=== PATIENT | female | born 1955 | race Caucasian/White ===

== ENCOUNTER 2018-08-29 19:49 | Emergency (ER) | payer OTHER, SELFPAY ==
[2018-08-29 19:52] VITALS: BP 125/76; PULSE 80; RESP 17; TEMP 36.6; O2SAT 98; BMI 31.2
--- NOTE | 2018-08-29 19:56 | DI.RAD.S_ITS ---
PROCEDURE: XR ELBOW RT MIN 3V INDICATIONS: right elbow pain after fall TECHNIQUE: 3 views of the elbow were acquired. COMPARISON: None. FINDINGS: Bones: There is acute oblique, possibly comminuted fracture through the right distal humerus/supracondylar region with anterior displacement of the distal fracture fragments. There are severe degenerative changes of the right elbow at the radial-humeral and ulnohumeral joints. Soft tissues: There is a large elbow joint effusion with overlying elbow soft tissue edema IMPRESSION: Acute displaced fracture through the supracondylar region of the right distal humerus, with associated right elbow joint effusion and soft tissue edema. Dictated by: Jeff Medina M.D. on 08/29/2018 at 20:45 Approved by: Jeff Medina M.D. on 08/29/2018 at 20:47
[2018-08-30 00:33] VITALS: BP 155/86; PULSE 74; RESP 17; TEMP 37.7; O2SAT 95
--- NOTE | 2018-08-30 01:45 | PC.NURSE ---
pt requesting pain medication. Dr Hairston aware
[2018-08-30] MEDS: MORPHINE 4 MG/ML INJ IM (01:59)
[2018-08-30] MEDS: HYDROCODONE/ACET 5/325 PREPACK 1 BOTTLE MISC (02:02)
[2018-08-30] MEDS: ONDANSETRON 4 MG ODT SL (02:23)
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
[2018-08-30 02:47] VITALS: BP 147/78; PULSE 75; RESP 18; TEMP 37.2; O2SAT 96
== END 2018-08-30 03:11 | disposition home or self-care (01) ==
PROVIDERS: Emergency Provider Emergency Medicine
DX: S42.401A Unspecified fracture of lower end of right humerus, initial encounter for closed fracture (principal); W01.0XXA Fall on same level from slipping, tripping and stumbling without subsequent striking against object, initial encounter; Y92.524 Gas station as the place of occurrence of the external cause
CPT/HCPCS: 29105; 73080; 96372; 99283; J2270

== ENCOUNTER → 2018-10-17 12:47 | Outpatient (CLI) | payer OTHER, SELFPAY ==
--- NOTE | 2018-10-17 | DI.CT.S_ITS ---
PROCEDURE: CT UE RT WO CON INDICATIONS: PAIN IN RIGHT ELBOW TECHNIQUE: Noncontrast 1-1.5 mm axial sections were acquired through the elbow joint, with coronal and sagittal reformats. COMPARISON: [facility], CR, XR ELBOW 1 OR 2 VIEWS RIGHT, 10/03/2018, 15:38. [facility], CR, XR ELBOW 1 OR 2 VIEWS RIGHT, 09/12/2018, 15:52. [facility], CR, XR ELBOW 1 OR 2 VIEWS RIGHT, 09/02/2018, 17:00. [facility], CR, XR ELBOW RT MIN 3V, 08/29/2018, 19:58. FINDINGS: Image quality: Excellent. Bones: Severe osteopenia. Grossly unchanged alignment of distal humeral supracondylar fracture however minimal if any bridging ossification, possibly some present on image 80 series 5. Advanced shoulder joint degeneration, with near [id number] appearance. There is extensive callus formation and bulky osteophytes. Subchondral lucencies/cystic changes. There is diffuse muscle atrophy. Subcutaneous edema overlying the olecranon. Chronic deformity of the radial head. Possible trace elbow joint effusion. IMPRESSION: Redemonstration of distal humeral supracondylar fracture with minimal bridging ossification identified. Unchanged alignment. Diffuse osteopenia Advanced elbow joint degeneration with ditp-en-dlcw appearance. Dictated by: Joselito Mercer M.D. on 10/17/2018 at 16:16 Approved by: Joselito Mercer M.D. on 10/17/2018 at 16:21
== END ==
LOC: RAD 12:49
PROVIDERS: PCP Student in an Organized Health Care Education/Training Program; Visit Provider Physician Assistant
DX: M25.521 Pain in right elbow (principal); S42.411A Displaced simple supracondylar fracture without intercondylar fracture of right humerus, initial encounter for closed fracture; M19.011 Primary osteoarthritis, right shoulder; M85.852 Other specified disorders of bone density and structure, left thigh; Z78.0 Asymptomatic menopausal state; M06.9 Rheumatoid arthritis, unspecified; Z82.62 Family history of osteoporosis
CPT/HCPCS: 73200; 77080

== ENCOUNTER 2019-01-09 20:12 | Emergency (ER) | payer OTHER, SELFPAY ==
--- NOTE | 2019-01-09 20:13 | DI.RAD.S_ITS ---
PROCEDURE: XR ACUTE ABDOMEN SERIES INDICATIONS: Abdominal pain, N/V TECHNIQUE: One view chest and two views of the abdomen were acquired. COMPARISON: None. FINDINGS: Surgical changes and devices: None. Chest: Lungs are clear. There is a moderate size hiatal hernia. Heart size is normal. No pleural effusions. No pneumoperitoneum. Abdomen: Bowel gas pattern is within normal limits. No suspicious calcifications. Bones: No suspicious bony lesions. IMPRESSION: 1. No definite acute intra-abdominal radiographic abnormality. 2. Moderate-sized hiatal hernia. Dictated by: Crispin Cueva M.D. on 01/09/2019 at 21:17 Approved by: Crispin Cueva M.D. on 01/09/2019 at 21:18
[2019-01-09] MEDS: SODIUM CHLORIDE 0.9% 1,000 ML 1000 ML IV (20:17)
[2019-01-09 20:20] VITALS: BP 160/79; PULSE 65; RESP 19; TEMP 36.2; O2SAT 99; BMI 32.2
--- NOTE | 2019-01-09 20:22 | ED_ITS ---
HPI - Nausea/Vomiting/Diarrhea General Chief complaint: Nausea/Vomiting/Diarrhea Stated complaint: Back Pain Time Seen by Provider: 01/09/19 20:12 Source: patient and EMS Mode of arrival: EMS Limitations: no limitations History of Present Illness HPI Narrative: 63-year-old female nonsmoker with noncontributory medical history presents by EMS for evaluation of a severe, sudden onset upper back pain with nausea and vomiting that started 30 minutes after eating. Her pain is worse with motion and improves with rest. She admits to some relief after vomiting. She denies any history of the same. She denies any fever or shaking chills. She is not dizzy nor weak or lightheaded. She denies any chest pain or shor tness of breath. Related Data Previous Rx's Medication Instructions Recorded hydrocodone-acetaminophen [[place]] 1 tab PO Q4-6H PRN #14 tab 08/30/18 hydrocodone-acetaminophen 1 tab PO Q4-6H PRN #10 tab 01/09/19 ondansetron 4 mg PO TID-QID PRN #10 tab 01/09/19 Allergies Allergy/AdvReac Type Severity Reaction Status Date / Time No Known Drug Allergies Allergy Verified 08/29/18 19:52 Review of Systems Constitutional Constitutional: Denies chills, Denies fatigue, Denies fever(s), Denies frequent falls, Denies lethargy and Denies weakness Eyes Eyes: Denies change in vision, Denies eye discharge, Denies irritation and Denies loss of vision ENT Ears, Nose, Mouth, and Throat: Denies change in voice, Denies dizziness, Denies neck pain, Denies sore throat and Denies throat swelling Cardiovascular Cardiovascular: Denies chest pain, Denies irregular heart rhythm, Denies lightheadedness, Denies palpitations, Denies dyspnea, Denies dyspnea on exertion and Denies orthopnea Respiratory Respiratory: Denies cough, Denies dyspnea, Denies dyspnea on exertion and Denies wheezing Gastrointestinal Gastrointestinal: Reports abdominal pain, Denies change in bowel habits, Denies diarrhea, Reports nausea and Reports vomiting Genitourinary Genitourinary: Denies hematuria, Denies flank pain, Denies urinary incontinence and Denies urinary urgency Musculoskeletal Musculoskeletal: Reports back pain, Denies muscle weakness, Denies neck pain, Denies numbness and Denies tingling Integumentary/Breasts Skin/Breast: Denies pruritus, Denies erythema, Denies rash and Denies wounds Neurologic Neurologic: Denies behavioral changes, Denies confusion, Denies dizziness, Denies frequent falls, Denies loss of vision, Denies numbness, Denies tingling and Denies weakness Psychiatric Psychiatric: Denies anxiety, Denies behavioral changes, Denies confusion, Denies depression, Denies homicidal ideation and Denies suicidal ideation Endocrine Endocrine: Denies fatigue, Denies flushing and Denies palpitations Hematologic/Lymphatic Hematologic/Lymphatic: Denies easy bruising Allergic/Immunologic Allergic/Immunologic: Denies urticaria, Denies throat swelling and Denies wheezing Patient History Medical History Arthritis (Acute) Surgical History No pertinent past surgical history (Acute) Social History Smoking Status: Never smoker alcohol intake frequency: holidays/special occasions only Substance Use Type: does not use Exam Narrative Exam Narrative: GENERAL: [63] year old patient appears stated age. Well- nourished, well-developed patient, in mild distress, holding an emesis bag which is empty HEAD: Atraumatic. Normocephalic. EYES: Pupils equal round and reactive. Extraocular motions intact. No scleral icterus. No injection or drainage. ENT: Nose without bleeding, purulent drainage. Throat without erythema, tonsillar hypertrophy or exudate. Airway patent. NECK: Trachea midline. Non tender CARDIOVASCULAR: Regular rate and rhythm without murmurs, gallops, or rubs. RESPIRATORY: Clear to auscultation. Breath sounds equal bilaterally. No wheezes, rales, or rhonchi. GASTROINTESTINAL: Abdomen soft, severe tenderness in epigastrium, nondistended. EXTREMITIES: No edema or joint tenderness. BACK: Nontender without deformity or crepitance. No flank tenderness. NEURO: AOx3. SKIN: No rash or erythema of visible areas Initial Vital Signs Initial Vital Signs: Vital Signs Temperature 97.1 F L 01/09/19 20:20 Pulse Rate 65 01/09/19 20:20 Respiratory Rate 19 01/09/19 20:20 Blood Pressure 160/79 H 01/09/19 20:20 Pulse Oximetry 99 01/09/19 20:20 Course Orders Ordered: ED Orders 01/09/19 20:00 Complete Blood Count AUTO DIFF Stat Comprehensive Metabolic Panel Stat Lipase Stat 01/09/19 20:13 XR acute abdomen series Stat 01/09/19 20:46 US abdomen limited Stat 01/09/19 21:08 EKG-12 Lead Stat Discontinued Medications Hydrocodone Bitart/Acetaminophen (Vicodin 5/325 Prepack) 1 bottle MISC SEEINSTR ONE Stop: 01/09/19 21:39 Last Admin: 01/09/19 21:54 Dose: 1 bottle Documented by: VASILE Hydromorphone HCl (Dilaudid) 0.5 mg IV NOW ONE Stop: 01/09/19 20:47 Last Admin: 01/09/19 20:51 Dose: 0.5 mg Documented by: MOLLY Sodium Chloride (Normal Saline 0.9%) 1,000 mls @ 1,000 mls/hr IV BOLUS ONE Stop: 01/09/19 21:11 Last Admin: 01/09/19 20:17 Dose: 1,000 mls/hr Documented by: MOLLY Ondansetron HCl (Zofran Odt Prepack) 1 bottle MISC SEEINSTR ONE Stop: 01/09/19 21:39 Last Admin: 01/09/19 21:54 Dose: 1 bottle Documented by: VASILE Reevaluation(s) Reevaluation #1: Patient feels much better after above-stated medications Consultations Consultation #1: Discussion with on-call surgeon regarding patient's presentation, labs, exam and ultrasound. He shares the opinion that this is appropriate to be managed as an outpatient with close follow-up and good return precautions. Vital Signs Vital signs: Vital Signs - 8 hr 01/09/19 20:20 01/09/19 21:41 Temperature 97.1 F L Pulse Rate 65 62 Respiratory Rate 19 12 Blood Pressure 160/79 H Blood Pressure [Left Arm] 158/74 H Pulse Oximetry 99 98 MDM - Nausea/Vomiting/Diarrhea Lab Data Result diagrams: 01/09/19 20:00 01/09/19 20:00 Labs: Lab Results 01/09/19 01/09/19 Range/Units 20:00 20:00 WBC 6.5 (4.5-11.0) X10^3/uL RBC 4.76 (4.0-5.2) X10^6/uL Hgb 14.3 (12.0-16.0) g/dL Hct 42.9 (36-46) % MCV 90.1 (80-100) fL MCH 30.1 (26-34) PG MCHC 33.4 (30-36) % RDW 14.7 (11.6-14.8) % Plt Count 299 (150-400) X10^3/uL Neut % (Auto) 67.9 (50-75) % Lymph % (Auto) 23.7 L (25-40) % [place] % (Auto) 6.4 (3-14) % Eos % (Auto) 1.4 L (2-4) % Baso % (Auto) 0.6 (0-2) % Neut # (Auto) 4400 (2777-2976) /uL Lymph # (Auto) 1500 (7232-6181) /uL [place] # (Auto) 400 (0-900) /uL Eos # (Auto) 100 (0-450) /uL Baso # (Auto) 0 (0-100) /uL Sodium 140 (137-145) mmol/L Potassium 4.0 (3.4-5.1) mmol/L Chloride 103 (98-107) mmol/L Carbon Dioxide 26 (22-32) mmol/L BUN 16 (7-17) mg/dL Creatinine 0.90 (0.52-1.04) mg/dL Estimated GFR > 60.0 (>60) mL/min BUN/Creatinine Ratio 17.8 (6-22) Glucose 131 H (80-110) mg/dL Calcium 10.4 H (8.4-10.2) mg/dL Total Bilirubin 0.4 (0.2-1.3) mg/dL AST 25 (14-36) IU/L ALT 18 (<35) IU/L Alkaline Phosphatase 68 (38-126) U/L Total Protein 8.0 (6.3-8.2) g/dL Albumin 4.7 (3.5-5.0) g/dL Globulin 3.3 (1.7-4.1) g/dL Albumin/Globulin Ratio 1.4 (1.0-2.8) Lipase 213 (23-300) U/L Imaging Data US - abdomen: Radiologist's impression: [address] [address] Ultrasound Report Signed Patient: Christy Granado [facility]#: [id number] : 7Acct:[id number] Age/Sex: 63 / FDate of Service: 01/09/19 Loc: ED Accession Number: [id number] Procedure: US abdomen limited Ordering Provider: Nahid Martinez D.O. PROCEDURE: US ABDOMEN LIMITED INDICATIONS: epigastric pain after eating TECHNIQUE: Real-time focused scanning was performed of the gallbladder, with image documentation. COMPARISON: None. FINDINGS: The gallbladder demonstrates multiple internal echogenic filling defects with adjacent confluent echoes. The findings are compatible with gallstones and biliary sludge. No gallbladder wall thickening, pericholecystic fluid, or reported sonographic Todd's sign. No definite intrahepatic biliary ductal dilatation. The extrahepatic duct appears normal in caliber, with the visualized common bile duct measuring up to approximately 4 mm. IMPRESSION: 1. Cholelithiasis and biliary sludge without evidence of cholecystitis. 2. No definite biliary ductal dilatation. Dictated by: Crispin Cueva M.D. on 01/09/2019 at 21:53 Approved by: Crispin Cueva M.D. on 01/09/2019 at 21:55 MDM Narrative Medical decision making narrative: 63-year-old female with sudden onset epigastric pain with radiation to her back and vomiting 30 minutes after eating Thanksgiving dinner. She denies any chest pain, shortness of breath, diaphoresis, exertional findings or other cardiac equivalents. Patient admits to having a similar episode about 1 month ago but not quite as intense. Her story and ultrasound are very convincing for biliary disease. She is not septic, pain is well tolerated and labs are very reassuring. She is appropriate for outpatient follow-up with General surgery. She has been given return precautions and both she and family have had questions answered to their apparent satisfaction Discharge Plan Departure Patient Disposition: Home Clinical Impression: Gall bladder disease Instructions: DI for Biliary Colic Activity Restrictions/Additional Instructions: *You have been diagnosed with [gallstones with biliary colic] *What to do: *Take medications as directed: Do not combine Ultram and hydrocodone, they are both pain meds and have a similar function, abdomen together could result in overdose *Follow up with [facility] in 2-3 days, call for an appointment. Let them know you were seen in the Emergency Department and that we ask that you be seen in follow up *Return to ER if you should have any new, worsening or concerning symptoms, such as [fever over 101 F, persistent vomiting, worsening pain or other concerning symptoms] 1. Drink plenty of fluids with frequent small sips. 2. For the next 24 hours a clear liquid diet is advised. After that please employ a brat diet which would include bananas, rice, apples, toast. Prescriptions: New hydrocodone-acetaminophen 5-325 mg tablet 1 tab PO Q4-6H PRN (Reason: pain) Qty: 10 RF: 0 ondansetron 4 mg tablet,disintegrating 4 mg PO TID-QID PRN (Reason: nausea and vomiting) Qty: 10 RF: 0 No Action hydrocodone-acetaminophen [[place]] 5-325 mg tablet 1 tab PO Q4-6H PRN (Reason: pain) Qty: 14 RF: 0 Referrals: Freda Ricardo PA-C [[facility]] - Mirta Meredith MD [Primary Care Provider] - Anibal Patel MD [Physician] -
[2019-01-09 20:23] LABS: Add Manual Diff / Slide Review NO; Basophils Absolute Auto 0 /uL (0-100); Basophils Percent Auto 0.6 % (0-2); Eosinophils Absolute Auto 100 /uL (0-450); Eosinophils Percent Auto 1.4 % (2-4); Hematocrit 42.9 % (36-46); Hemoglobin 14.3 g/dL (12.0-16.0); Lymphocytes Absolute Auto 1500 /uL (1100-4500); Lymphocytes Percent Auto 23.7 % (25-40); Mean Corpuscular HGB Conc 33.4 % (30-36); Mean Corpuscular Hemoglobin 30.1 PG (26-34); Mean Corpuscular Volume 90.1 fL (80-100); Monocytes Absolute Auto 400 /uL (0-900); Monocytes Percent Auto 6.4 % (3-14); Neutrophils Absolute Auto 4400 /uL (1500-7000); Neutrophils Percent Auto 67.9 % (50-75); Platelet Count 299 X10^3/uL (150-400); Red Blood Cell Count 4.76 X10^6/uL (4.0-5.2); Red Cell Distribution Width 14.7 % (11.6-14.8); White Blood Cell Count 6.5 X10^3/uL (4.5-11.0)
[2019-01-09 20:31] LABS: Alanine Aminotransferase 18 IU/L (<35); Albumin 4.7 g/dL (3.5-5.0); Albumin Globulin Ratio 1.4 (1.0-2.8); Alkaline Phosphatase 68 U/L (38-126); Aspartate Aminotransferase 25 IU/L (14-36); BUN Creatinine Ratio 17.8 (6-22); Bilirubin Total 0.4 mg/dL (0.2-1.3); Blood Urea Nitrogen 16 mg/dL (7-17); Calcium 10.4 mg/dL (8.4-10.2); Carbon Dioxide 26 mmol/L (22-32); Chloride 103 mmol/L (98-107); Estimated Glomerular Filt Rate > 60.0 mL/min (>60); Globulin 3.3 g/dL (1.7-4.1); Glucose 131 mg/dL (80-110); HEMOLYSIS < 15 (0-50); Lipase 213 U/L (23-300); Sodium 140 mmol/L (137-145)
--- NOTE | 2019-01-09 20:46 | DI.US.S_ITS ---
PROCEDURE: US ABDOMEN LIMITED INDICATIONS: epigastric pain after eating TECHNIQUE: Real-time focused scanning was performed of the gallbladder, with image documentation. COMPARISON: None. FINDINGS: The gallbladder demonstrates multiple internal echogenic filling defects with adjacent confluent echoes. The findings are compatible with gallstones and biliary sludge. No gallbladder wall thickening, pericholecystic fluid, or reported sonographic Todd's sign. No definite intrahepatic biliary ductal dilatation. The extrahepatic duct appears normal in caliber, with the visualized common bile duct measuring up to approximately 4 mm. IMPRESSION: 1. Cholelithiasis and biliary sludge without evidence of cholecystitis. 2. No definite biliary ductal dilatation. Dictated by: rCispin Cueva M.D. on 01/09/2019 at 21:53 Approved by: Crispin Cueva M.D. on 01/09/2019 at 21:55
[2019-01-09] MEDS: HYDROMORPHONE 0.5 MG INJ IV (20:51)
[2019-01-09 21:41] VITALS: BP 158/74; PULSE 62; RESP 12; O2SAT 98
[2019-01-09] MEDS: HYDROCODONE/ACET 5/325 PREPACK 1 BOTTLE MISC (21:54)
[2019-01-09] MEDS: ONDANSETRON 4 MG ODT PREPACK 1 BOTTLE MISC (21:54)
--- NOTE | 2019-01-09 22:23 | PC.NURSE ---
Stated she was feeling better.
== END 2019-01-09 22:05 | disposition home or self-care (01) ==
PROVIDERS: Emergency Provider Emergency Medicine; PCP Student in an Organized Health Care Education/Training Program
DX: K82.9 Disease of gallbladder, unspecified (principal); R10.13 Epigastric pain; R11.10 Vomiting, unspecified; R07.9 Chest pain, unspecified
CPT/HCPCS: 36415; 74022; 76705; 80053; 83690; 85025; 93005; 96361; 96374; 99283; 99285; J1170

== ENCOUNTER 2019-01-12 10:46 | Observation (INO) | payer OTHER, SELFPAY ==
[2019-01-12] VITALS (16 sets, daily range): BP systolic 134–171; BP diastolic 63–89; PULSE 81–100; RESP 12–18; TEMP 36.2–37.1; O2SAT 93–99; BMI 31.8
--- NOTE | 2019-01-12 | PATH_ITS ---
[facility] Accession Number: [id number] . 01 Material submitted: . gallbladder - GALLBLADDER . 01 Clinical history: . NOT ABLE TO KEEP ANYTHING DOWN . 02 Diagnosis: Gallbladder, Cholecystectomy: Chronic active cholecystitis with ulceration and cholelithiasis. No evidence of dysplasia or malignancy. MRV 01/15/2019 1123 Local . 02 Electronically signed: . Ericka Schultz MD, Pathologist NPI- [id number] . 01 Gross description: . Received in formalin, labeled gallbladder, is a perforated gallbladder (length-7.5 cm, diameter-3.8 cm) with mcclendon-green smooth shiny serosa and a patient cystic duct. No lymph nodes are present. The lumen contains green gelatinous bile and multiple bright yellow friable calculi (3.5 x 2.3 x 0.5 cm in aggregate). The mucosa is blanco-green smooth and flat. The wall is up to 0.2 cm thick. No nodules, masses or lesions are identified. Section code: (A1) cystic duct resection margin and two serial sections from the body; (A2) two longitudinal sections from the fundus. ([id number]) /MRV 01/14/2019 1027 Local . 02 Pathologist provided ICD-10: K80.60 . 02 CPT . 649855 Performed at: 01 [facility] [address] [id number] MD Crispin Wu MD Phone: [phone] Performed at: 02 [facility] [place] [id number] [place], [place] [id number] MD Ericka Schultz MD Phone: [phone]
--- NOTE | 2019-01-12 11:21 | DI.RAD.S_ITS ---
PROCEDURE: XR ACUTE ABDOMEN SERIES INDICATIONS: abd pain, no bm x 4 days TECHNIQUE: One view chest and two views of the abdomen were acquired. COMPARISON: [facility], , XR ACUTE ABDOMEN SERIES, 01/09/2019, 20:16. FINDINGS: Surgical changes and devices: None. Chest: Lungs are clear. Heart size is normal. No pleural effusions. No pneumoperitoneum. There is a moderate-sized hiatal hernia. Abdomen: Bowel gas pattern is normal. No suspicious calcifications. Visualized solid organ contours appear normal. Bones: No suspicious bony lesions. IMPRESSION: No acute cardiopulmonary findings. Nonspecific bowel gas pattern. No acute intra-abdominal findings. Dictated by: Josephine Rueda M.D. on 01/12/2019 at 11:15 Approved by: Josephine Rueda M.D. on 01/12/2019 at 11:16
--- NOTE | 2019-01-12 11:32 | DI.US.S_ITS ---
PROCEDURE: US ABDOMEN LIMITED INDICATIONS: WORSENING RIGHT UPPER QUADRANT PAIN TECHNIQUE: Real-time scanning was performed of the abdominal and retroperitoneal organs, with image documentation. COMPARISON: [facility], US, US ABDOMEN LIMITED, 01/09/2019, 20:54. FINDINGS: Gallbladder: The gallbladder wall measures up to 4.3 mm in diameter. There is trace pericholecystic fluid. Multiple gallstones are layered in the fundus. The gallbladder wall appears thickened when compared with the prior study dated 01/09/19. Biliary ducts: Intrahepatic bile ducts are non-dilated. Extrahepatic bile duct caliber measures 5.1 mm. Normal is 6-7 mm or less in diameter, or 10 mm or less post-cholecystectomy. IMPRESSION: 1. Cholelithiasis and gallbladder wall thickening and pericholecystic fluid which is new when compared with the ultrasound dated 01/09/19. Findings are suspicious for early acute cholecystitis. These findings were discussed with TODD Garcia at 11:45 AM ([place] time) on 01/12/19. isDictated by: Josephine Rueda M.D. on 01/12/2019 at 11:41 Approved by: Josephine Rueda M.D. on 01/12/2019 at 11:47
--- NOTE | 2019-01-12 11:38 | ED_ITS ---
HPI - Nausea/Vomiting/Diarrhea <NATHAN Garcia - Last Filed: 01/12/19 14:08> General Chief complaint: Nausea/Vomiting/Diarrhea Stated complaint: Not able to keep anything down Time Seen by Provider: 01/12/19 11:07 Source: patient and family Mode of arrival: Wheelchair Limitations: no limitations History of Present Illness HPI Narrative: The patient is a 63-year-old female nonsmoker presents with continued right upper quadrant pain. She has seen and evaluated this facility on , 01/09/19 a for disorder of gallbladder. She presented with abdominal and back pain after eating. She was found to have gallbladder sludge and gallstones, no evidence of cholecystitis. She states that her pain is not increased or worsened. She states she feels no better and that is why she came to the emergency department. She feels as though her pain and nausea medications are not working. She states she is having trouble keeping things down. She has not had a bowel movement since morning. She denies any chest pain or shortness of breath. She states her pain is in her right upper quadrant and extending all over her abdomen. She states that she took [place] this morning at 3:00 a.m. as well as a 9:30 a.m.. She states that she took Zofran at 9:30 a.m.. Patient states that she has history of fibromyalgia, takes gabapentin. She also takes citalopram and omeprazole for NSAID use. Last water intake 10:00 a.m.. No solid food for the past few days. Related Data Previous Rx's Medication Instructions Recorded hydrocodone-acetaminophen [[place]] 1 tab PO Q4-6H PRN #14 tab 08/30/18 hydrocodone-acetaminophen 1 tab PO Q4-6H PRN #10 tab 01/09/19 ondansetron 4 mg PO TID-QID PRN #10 tab 01/09/19 Allergies Allergy/AdvReac Type Severity Reaction Status Date / Time No Known Drug Allergies Allergy Verified 08/29/18 19:52 Review of Systems <NATHAN Garcia - Last Filed: 01/12/19 14:08> Review of Systems Narrative: GENERAL: Denies chills, fatigue, malaise, fever, sweats. HEENT: Denies sinus pain, ear pain, sore throat, difficulty swallowing, dizziness. RESPIRATORY: Denies dyspnea, cough, wheezing, hemoptysis, sputum. CARDIOVASCULAR: Denies chest pain, palpitations, orthopnea, edema, GASTROINTESTINAL: See HPI : Denies dysuria, frequency, incontinence, hematuria, urinary retention. MUSCULOSKELETAL: denies weakness, joint pain, or bony pain SKIN: Denies rash, skin lesions, or other NEUROLOGIC: Denies weakness, headache, numbness, change in speech, confusion, seizures, incoordination. PSYCHIATRIC: No concerning psychosocial issues. 12 point review of systems is negative except for those stated above Patient History <NATHAN Garcia - Last Filed: 01/12/19 14:08> Medical History Arthritis (Acute) Fibromyalgia (Acute) GERD (gastroesophageal reflux disease) (Acute) Surgical History No pertinent past surgical history (Acute) Social History Smoking Status: Never smoker alcohol intake frequency: holidays/special occasions only Substance Use Type: does not use Exam <NATHAN Garcia - Last Filed: 01/12/19 14:08> Narrative Exam Narrative: GENERAL: Elderly female lying on stretcher with arm brace on right arm HEAD: Atraumatic. Normocephalic. No temporal or scalp tenderness. EYES: Pupils equal round and reactive. Extraocular motions intact. No scleral icterus. No injection or drainage. ENT: Nose without bleeding, purulent drainage or septal hematoma. Throat without erythema, tonsillar hypertrophy or exudate. Uvula midline. Airway patent. NECK: Trachea midline. No JVD or lymphadenopathy. Supple, nontender, no meningeal signs. CARDIOVASCULAR: Regular rate and rhythm RESPIRATORY: Clear to auscultation. Breath sounds equal bilaterally. No wheezes, rales, or rhonchi. No cough. No increased respiratory effort. No accessory muscle use. GASTROINTESTINAL: Abdomen soft, positive Todd's. Diffuse tenderness to palpation. Active bowel sounds all 4 quadrants. . EXTREMITIES: No clubbing, cyanosis, or edema. No joint tenderness, effusion, or edema noted. BACK: Nontender without deformity or crepitance. No flank tenderness. NEURO: AOx3. SKIN: No rash or erythema on visible skin Initial Vital Signs Initial Vital Signs: Vital Signs Temperature 98.8 F 01/12/19 11:00 Pulse Rate 91 H 01/12/19 11:00 Respiratory Rate 18 01/12/19 11:00 Blood Pressure 171/89 H 01/12/19 11:00 Pulse Oximetry 98 01/12/19 11:00 <Kaitlynn Jernigan DO - Last Filed: 01/12/19 18:44> Initial Vital Signs Initial Vital Signs: Vital Signs Temperature 98.8 F 01/12/19 11:00 Pulse Rate 91 H 01/12/19 11:00 Respiratory Rate 18 01/12/19 11:00 Blood Pressure 171/89 H 01/12/19 11:00 Pulse Oximetry 98 01/12/19 11:00 Course <TODD Garcia-BC - Last Filed: 01/12/19 14:08> Orders Ordered: ED Orders 01/12/19 11:21 XR acute abdomen series Stat 01/12/19 11:30 Amylase Stat Complete Blood Count AUTO DIFF Stat Comprehensive Metabolic Panel Stat Lipase Stat 01/12/19 11:32 US abdomen limited Stat 01/12/19 13:14 Urine Microscopic Stat Acetaminophen (Tylenol) 650 mg PO Q4HR [facility] Last Admin: 01/12/19 18:43 Dose: 650 mg Documented by: SLECLAIR Hydrocodone Bitart/Acetaminophen ([place] 5/325) 1 tab PO Q4H PRN PRN Reason: pain Enoxaparin Sodium (Lovenox) 40 mg SUBCUT DAILY [facility] Sodium Chloride (Normal Saline 0.9%) 1,000 mls @ 100 mls/hr IV CONT [facility] Last Admin: 01/12/19 17:39 Dose: 100 mls/hr Documented by: SLECLAIR Naloxone HCl (Narcan) 0.2 mg IV Q2MIN PRN PRN Reason: Opiate Reversal Ondansetron HCl (Zofran) 4 mg IV Q8HR PRN PRN Reason: Nausea And Vomiting Last Admin: 01/12/19 17:39 Dose: 4 mg Documented by: SLECLAIR Oxycodone/Acetaminophen (Percocet 5/325) 1 tab PO Q4HR PRN PRN Reason: Pain, Moderate (4-6) Last Admin: 01/12/19 18:42 Dose: 1 tab Documented by: BINDU Tramadol HCl (Ultram) 50 mg PO TID PRN PRN Reason: Pain, Moderate (4-6) Discontinued Medications Aprepitant (Emend) 40 mg PO NOW ONE Stop: 01/12/19 14:06 Last Admin: 01/12/19 14:15 Dose: 40 mg Documented by: CHRISSY Bupivacaine HCl (Sensorcaine 0.25% (Pf)) 30 ml INJ NOW ONE Stop: 01/12/19 15:30 Last Admin: 01/12/19 15:29 Dose: 30 ml Documented by: LYLE Fentanyl (Sublimaze) 0 mcg IV Q5M PRN PRN Reason: Pain, Moderate (4-6) Last Admin: 01/12/19 16:15 Dose: 50 mcg Documented by: SIM Hydromorphone HCl (Dilaudid) 0 mg IV Q5M PRN PRN Reason: Pain, Moderate (4-6) Hydroxyzine HCl (Vistaril) 25 mg IM NOW PRN PRN Reason: Pain, Mild (1-3) Sodium Chloride (Normal Saline 0.9%) 1,000 mls @ 1,000 mls/hr IV BOLUS ONE Stop: 01/12/19 12:20 Last Infusion: 01/12/19 12:50 Dose: 0 mls/hr Documented by: Admin: 01/12/19 11:43 Dose: 1,000 mls/hr Documented by: XIAO Sodium Chloride (Normal Saline 0.9%) 1,000 mls @ 150 mls/hr IV CONT [facility] Last Infusion: 01/12/19 14:10 Dose: 150 mls/hr Documented by: Admin: 01/12/19 12:51 Dose: 150 mls/hr Documented by: XIAO Piperacillin/Tazobactam/Dextrose (Zosyn) 3.375 gm in 50 mls @ 100 mls/hr IV NOW ONE Stop: 01/12/19 13:34 Last Infusion: 01/12/19 14:11 Dose: 0 mls/hr Documented by: Admin: 01/12/19 13:28 Dose: 100 mls/hr Documented by: XIAO Lactated Ringer's (Lactated Ringers) 1,000 mls @ 42 mls/hr IV CONT [facility] Last Infusion: 01/12/19 16:36 Dose: 0 mls/hr Documented by: Admin: 01/12/19 15:46 Dose: 42 mls/hr Documented by: CHRISSY Lorazepam (Ativan) 0.25 mg IV NOW PRN PRN Reason: Anxiety Metoclopramide HCl (Reglan) 10 mg IV NOW PRN PRN Reason: Nausea And Vomiting Last Admin: 01/12/19 16:53 Dose: 10 mg Documented by: SIM Morphine Sulfate (Morphine) 4 mg IV NOW ONE Stop: 01/12/19 11:31 Last Admin: 01/12/19 11:43 Dose: 4 mg Documented by: XIAO Ondansetron HCl (Zofran) 4 mg IV NOW ONE Stop: 01/12/19 11:22 Last Admin: 01/12/19 11:43 Dose: 4 mg Documented by: XIAO Ondansetron HCl (Zofran) 4 mg IV NOW ONE Stop: 01/12/19 12:45 Last Admin: 01/12/19 12:51 Dose: 4 mg Documented by: XIAO Vital Signs Vital signs: Vital Signs - 8 hr 01/12/19 11:00 01/12/19 11:57 Temperature 98.8 F Pulse Rate 91 H 81 Respiratory Rate 18 Blood Pressure 171/89 H Blood Pressure [Left Arm] 149/83 H Pulse Oximetry 98 99 <Kaitlynn Jernigan, DO - Last Filed: 01/12/19 18:44> Orders Ordered: ED Orders 01/12/19 11:21 XR acute abdomen series Stat 01/12/19 11:30 Amylase Stat Complete Blood Count AUTO DIFF Stat Comprehensive Metabolic Panel Stat Lipase Stat 01/12/19 11:32 US abdomen limited Stat 01/12/19 13:14 Urine Microscopic Stat Acetaminophen (Tylenol) 650 mg PO Q4HR [facility] Last Admin: 01/12/19 18:43 Dose: 650 mg Documented by: BINDU Hydrocodone Bitart/Acetaminophen ([place] 5/325) 1 tab PO Q4H PRN PRN Reason: pain Enoxaparin Sodium (Lovenox) 40 mg SUBCUT DAILY [facility] Sodium Chloride (Normal Saline 0.9%) 1,000 mls @ 100 mls/hr IV CONT [facility] Last Admin: 01/12/19 17:39 Dose: 100 mls/hr Documented by: BINDU Naloxone HCl (Narcan) 0.2 mg IV Q2MIN PRN PRN Reason: Opiate Reversal Ondansetron HCl (Zofran) 4 mg IV Q8HR PRN PRN Reason: Nausea And Vomiting Last Admin: 01/12/19 17:39 Dose: 4 mg Documented by: BINDU Oxycodone/Acetaminophen (Percocet 5/325) 1 tab PO Q4HR PRN PRN Reason: Pain, Moderate (4-6) Last Admin: 01/12/19 18:42 Dose: 1 tab Documented by: BINDU Tramadol HCl (Ultram) 50 mg PO TID PRN PRN Reason: Pain, Moderate (4-6) Discontinued Medications Aprepitant (Emend) 40 mg PO NOW ONE Stop: 01/12/19 14:06 Last Admin: 01/12/19 14:15 Dose: 40 mg Documented by: CHRISSY Bupivacaine HCl (Sensorcaine 0.25% (Pf)) 30 ml INJ NOW ONE Stop: 01/12/19 15:30 Last Admin: 01/12/19 15:29 Dose: 30 ml Documented by: LYLE Fentanyl (Sublimaze) 0 mcg IV Q5M PRN PRN Reason: Pain, Moderate (4-6) Last Admin: 01/12/19 16:15 Dose: 50 mcg Documented by: SIM Hydromorphone HCl (Dilaudid) 0 mg IV Q5M PRN PRN Reason: Pain, Moderate (4-6) Hydroxyzine HCl (Vistaril) 25 mg IM NOW PRN PRN Reason: Pain, Mild (1-3) Sodium Chloride (Normal Saline 0.9%) 1,000 mls @ 1,000 mls/hr IV BOLUS ONE Stop: 01/12/19 12:20 Last Infusion: 01/12/19 12:50 Dose: 0 mls/hr Documented by: Admin: 01/12/19 11:43 Dose: 1,000 mls/hr Documented by: XIAO Sodium Chloride (Normal Saline 0.9%) 1,000 mls @ 150 mls/hr IV CONT [facility] Last Infusion: 01/12/19 14:10 Dose: 150 mls/hr Documented by: Admin: 01/12/19 12:51 Dose: 150 mls/hr Documented by: XIAO Piperacillin/Tazobactam/Dextrose (Zosyn) 3.375 gm in 50 mls @ 100 mls/hr IV NOW ONE Stop: 01/12/19 13:34 Last Infusion: 01/12/19 14:11 Dose: 0 mls/hr Documented by: Admin: 01/12/19 13:28 Dose: 100 mls/hr Documented by: XIAO Lactated Ringer's (Lactated Ringers) 1,000 mls @ 42 mls/hr IV CONT [facility] Last Infusion: 01/12/19 16:36 Dose: 0 mls/hr Documented by: Admin: 01/12/19 15:46 Dose: 42 mls/hr Documented by: CHRISSY Lorazepam (Ativan) 0.25 mg IV NOW PRN PRN Reason: Anxiety Metoclopramide HCl (Reglan) 10 mg IV NOW PRN PRN Reason: Nausea And Vomiting Last Admin: 01/12/19 16:53 Dose: 10 mg Documented by: SIM Morphine Sulfate (Morphine) 4 mg IV NOW ONE Stop: 01/12/19 11:31 Last Admin: 01/12/19 11:43 Dose: 4 mg Documented by: XIAO Ondansetron HCl (Zofran) 4 mg IV NOW ONE Stop: 01/12/19 11:22 Last Admin: 01/12/19 11:43 Dose: 4 mg Documented by: XIAO Ondansetron HCl (Zofran) 4 mg IV NOW ONE Stop: 01/12/19 12:45 Last Admin: 01/12/19 12:51 Dose: 4 mg Documented by: XIAO Vital Signs Vital signs: Vital Signs - 8 hr 01/12/19 11:00 01/12/19 11:57 Temperature 98.8 F Pulse Rate 91 H 81 Respiratory Rate 18 Blood Pressure 171/89 H Blood Pressure [Left Arm] 149/83 H Pulse Oximetry 98 99 MDM - Nausea/Vomiting/Diarrhea <NATHAN Garcia - Last Filed: 01/12/19 14:08> Lab Data Result diagrams: 01/12/19 11:30 01/12/19 11:30 Labs: Lab Results 01/12/19 01/12/19 01/12/19 Range/Units 11:30 11:30 13:14 WBC 12.0 H (4.5-11.0) X10^3/uL RBC 4.63 (4.0-5.2) X10^6/uL Hgb 13.9 (12.0-16.0) g/dL Hct 41.6 (36-46) % MCV 89.8 (80-100) fL MCH 30.0 (26-34) PG MCHC 33.3 (30-36) % RDW 15.0 H (11.6-14.8) % Plt Count 253 (150-400) X10^3/uL Neut % (Auto) 88.7 H (50-75) % Lymph % (Auto) 4.8 L (25-40) % [place] % (Auto) 6.0 (3-14) % Eos % (Auto) 0.3 L (2-4) % Baso % (Auto) 0.2 (0-2) % Neut # (Auto) 70134 H (0144-6667) /uL Lymph # (Auto) 600 L (4704-3161) /uL [place] # (Auto) 700 (0-900) /uL Eos # (Auto) 0 (0-450) /uL Baso # (Auto) 0 (0-100) /uL Sodium 136 L (137-145) mmol/L Potassium 3.8 (3.4-5.1) mmol/L Chloride 100 (98-107) mmol/L Carbon Dioxide 24 (22-32) mmol/L BUN 12 (7-17) mg/dL Creatinine 0.50 L (0.52-1.04) mg/dL Estimated GFR > 60.0 (>60) mL/min BUN/Creatinine Ratio 24.0 H (6-22) Glucose 99 (80-110) mg/dL Calcium 9.9 (8.4-10.2) mg/dL Total Bilirubin 1.2 (0.2-1.3) mg/dL AST 28 (14-36) IU/L ALT 24 (<35) IU/L Alkaline Phosphatase 96 (38-126) U/L Total Protein 8.0 (6.3-8.2) g/dL Albumin 4.5 (3.5-5.0) g/dL Globulin 3.5 (1.7-4.1) g/dL Albumin/Globulin Ratio 1.3 (1.0-2.8) Amylase 55 (30-110) U/L Lipase 39 D (23-300) U/L Urine RBC None seen (0-5/HPF) Urine WBC 0-1/hpf (0-5/HPF) Ur Squamous Epith Cells 0-1 /hpf (0-5/HPF) Urine Bacteria Occasional (0-1) (None) Ur Culture Indicated? Cult not indicated Urine Dip Bedside Urine Glucose Negative Bedside Urine Bilirubin - Negative Bedside Urine Ketone +++ 80 Urine Specific [place] 1.015 Bedside Urine Occult Blood - Negative Bedside Urine pH 6.0 Bedside Urine Protein +/- 15 Bedside Urine Urobilinogen +/- 1mg Bedside Urine Nitrite - Negative Bedside Urine Leukocytes - Negative Esterase Imaging Data US - abdomen: Radiologist's impression: [address] [address] Ultrasound Report Signed Patient: Christy Granado [facility]#: [id number] : 7Acct:[id number] Age/Sex: 63 / FDate of Service: 01/12/19 Loc: ED Accession Number: [id number] Procedure: US abdomen limited Ordering Provider: Riana Sawyer PROCEDURE: US ABDOMEN LIMITED INDICATIONS: WORSENING RIGHT UPPER QUADRANT PAIN TECHNIQUE: Real-time scanning was performed of the abdominal and retroperitoneal organs, with image documentation. COMPARISON: [facility], , US ABDOMEN LIMITED, 01/09/2019, 20:54. FINDINGS: Gallbladder: The gallbladder wall measures up to 4.3 mm in diameter. There is trace pericholecystic fluid. Multiple gallstones are layered in the fundus. The gallbladder wall appears thickened when compared with the prior study dated 01/09/19. Biliary ducts: Intrahepatic bile ducts are non-dilated. Extrahepatic bile duct caliber measures 5.1 mm. Normal is 6-7 mm or less in diameter, or 10 mm or less post-cholecystectomy. IMPRESSION: 1. Cholelithiasis and gallbladder wall thickening and pericholecystic fluid which is new when compared with the ultrasound dated 01/09/19. Findings are suspicious for early acute cholecystitis. These findings were discussed with TODD Garcia at 11:45 AM ([place] time) on 01/12/19. isDictated by: Josephine Rueda M.D. on 01/12/2019 at 11:41 Approved by: Josephine Rueda M.D. on 01/12/2019 at 11:47 Abdominal x-ray: Radiologist's impression: Christy Granado 63 F [address] [address] XRay Report Signed Patient: Christy Granado [facility]#: [id number] : [id number]:[id number] Age/Sex: 63 / FDate of Service: 01/12/19 Loc: ED Accession Number: [id number] Procedure: XR acute abdomen series Ordering Provider: Riana Sawyer PROCEDURE: XR ACUTE ABDOMEN SERIES INDICATIONS: abd pain, no bm x 4 days TECHNIQUE: One view chest and two views of the abdomen were acquired. COMPARISON: [facility], , XR ACUTE ABDOMEN SERIES, 01/09/2019, 20:16. FINDINGS: Surgical changes and devices: None. Chest: Lungs are clear. Heart size is normal. No pleural effusions. No pneumoperitoneum. There is a moderate-sized hiatal hernia. Abdomen: Bowel gas pattern is normal. No suspicious calcifications. Visualized solid organ contours appear normal. Bones: No suspicious bony lesions. IMPRESSION: No acute cardiopulmonary findings. Nonspecific bowel gas pattern. No acute intra-abdominal findings. Dictated by: Josephine Rueda M.D. on 01/12/2019 at 11:15 Approved by: Josephine Rueda M.D. on 01/12/2019 at 11:16 MDM Narrative Medical decision making narrative: The patient is a 63-year-old female who presents with a chief complaint of continued right upper quadrant pain since she was diagnosed with gallbladder disease at this facility on . Given that she feels slightly worse, has slight leukocytosis, I obtained repeat ultrasound which was concerning for acute cholecystitis. I spoke with Dr. Patel who came down to evaluate the patient. Zosyn was started as per surgery instructions. Patient was given pain and nausea medications as well as fluids throughout her stay in the emergency department. Patient was taken to surgery at 2:00 p.m. <Kaitlynn Jernigan, - Last Filed: 01/12/19 18:44> Lab Data Labs: Lab Results 01/12/19 01/12/19 01/12/19 Range/Units 11:30 11:30 13:14 WBC 12.0 H (4.5-11.0) X10^3/uL RBC 4.63 (4.0-5.2) X10^6/uL Hgb 13.9 (12.0-16.0) g/dL Hct 41.6 (36-46) % MCV 89.8 (80-100) fL MCH 30.0 (26-34) PG MCHC 33.3 (30-36) % RDW 15.0 H (11.6-14.8) % Plt Count 253 (150-400) X10^3/uL Neut % (Auto) 88.7 H (50-75) % Lymph % (Auto) 4.8 L (25-40) % [place] % (Auto) 6.0 (3-14) % Eos % (Auto) 0.3 L (2-4) % Baso % (Auto) 0.2 (0-2) % Neut # (Auto) 04199 H (4802-6830) /uL Lymph # (Auto) 600 L (0847-6640) /uL [place] # (Auto) 700 (0-900) /uL Eos # (Auto) 0 (0-450) /uL Baso # (Auto) 0 (0-100) /uL Sodium 136 L (137-145) mmol/L Potassium 3.8 (3.4-5.1) mmol/L Chloride 100 (98-107) mmol/L Carbon Dioxide 24 (22-32) mmol/L BUN 12 (7-17) mg/dL Creatinine 0.50 L (0.52-1.04) mg/dL Estimated GFR > 60.0 (>60) mL/min BUN/Creatinine Ratio 24.0 H (6-22) Glucose 99 (80-110) mg/dL Calcium 9.9 (8.4-10.2) mg/dL Total Bilirubin 1.2 (0.2-1.3) mg/dL AST 28 (14-36) IU/L ALT 24 (<35) IU/L Alkaline Phosphatase 96 (38-126) U/L Total Protein 8.0 (6.3-8.2) g/dL Albumin 4.5 (3.5-5.0) g/dL Globulin 3.5 (1.7-4.1) g/dL Albumin/Globulin Ratio 1.3 (1.0-2.8) Amylase 55 (30-110) U/L Lipase 39 D (23-300) U/L Urine RBC None seen (0-5/HPF) Urine WBC 0-1/hpf (0-5/HPF) Ur Squamous Epith Cells 0-1 /hpf (0-5/HPF) Urine Bacteria Occasional (0-1) (None) Ur Culture Indicated? Cult not indicated Urine Dip Bedside Urine Glucose Negative Bedside Urine Bilirubin - Negative Bedside Urine Ketone +++ 80 Urine Specific [place] 1.015 Bedside Urine Occult Blood - Negative Bedside Urine pH 6.0 Bedside Urine Protein +/- 15 Bedside Urine Urobilinogen +/- 1mg Bedside Urine Nitrite - Negative Bedside Urine Leukocytes - Negative Esterase Discharge Plan Departure Patient Disposition: Admitted as Observation Clinical Impression: Acute cholecystitis Discharge Date/Time: 01/12/19 14:00 Admit Date/Time: 01/12/19 13:37 Admit Provider: Anibal Patel
[2019-01-12] MEDS: SODIUM CHLORIDE 0.9% 1,000 ML 1000 ML IV (11:43)
[2019-01-12] MEDS: ONDANSETRON 4 MG/2 ML INJ IV ×3 (11:43→17:39)
[2019-01-12] MEDS: MORPHINE 4 MG/ML INJ IV (11:43)
[2019-01-12 11:51] LABS: Add Manual Diff / Slide Review NO; Basophils Absolute Auto 0 /uL (0-100); Basophils Percent Auto 0.2 % (0-2); Eosinophils Absolute Auto 0 /uL (0-450); Eosinophils Percent Auto 0.3 % (2-4); Hematocrit 41.6 % (36-46); Hemoglobin 13.9 g/dL (12.0-16.0); Lymphocytes Absolute Auto 600 /uL (1100-4500); Lymphocytes Percent Auto 4.8 % (25-40); Mean Corpuscular HGB Conc 33.3 % (30-36); Mean Corpuscular Volume 89.8 fL (80-100); Monocytes Absolute Auto 700 /uL (0-900); Neutrophils Absolute Auto 10600 /uL (1500-7000); Neutrophils Percent Auto 88.7 % (50-75); Platelet Count 253 X10^3/uL (150-400); Red Blood Cell Count 4.63 X10^6/uL (4.0-5.2)
[2019-01-12 12:07] LABS: Alanine Aminotransferase 24 IU/L (<35); Albumin 4.5 g/dL (3.5-5.0); Albumin Globulin Ratio 1.3 (1.0-2.8); Alkaline Phosphatase 96 U/L (38-126); Amylase 55 U/L (30-110); Aspartate Aminotransferase 28 IU/L (14-36); Bilirubin Total 1.2 mg/dL (0.2-1.3); Blood Urea Nitrogen 12 mg/dL (7-17); Calcium 9.9 mg/dL (8.4-10.2); Carbon Dioxide 24 mmol/L (22-32); Chloride 100 mmol/L (98-107); Estimated Glomerular Filt Rate > 60.0 mL/min (>60); Globulin 3.5 g/dL (1.7-4.1); Glucose 99 mg/dL (80-110); HEMOLYSIS 38 (0-50); Lipase 39 U/L (23-300); Potassium 3.8 mmol/L (3.4-5.1); Sodium 136 mmol/L (137-145)
[2019-01-12] MEDS: SODIUM CHLORIDE 0.9% 1,000 ML 150 ML IV (12:51)
[2019-01-12 13:26] LABS: RBC Urine None Seen (0-5/HPF)
[2019-01-12] MEDS: PIPERACILLIN-TAZO 3.375 GM/50 ML FROZ.PIGGY IV (13:28)
[2019-01-12 13:33] LABS: Squamous Epithelial Cell Urine 0-1 /HPF (0-5/HPF); WBC Urine 0-1/HPF (0-5/HPF)
[2019-01-12 13:34] LABS: Bacteria Urine Occasional (0-1); Culture Indicated Urine Cult Not Indicated
--- NOTE | 2019-01-12 13:39 | PM.HP.1 ---
History of Present Illness History of Present Illness Date Patient Seen: 01/12/19 Time Patient Seen: 13:43 Chief complaint: Not able to keep anything down Narrative: 63-year-old female with history of biliary colic presents with acute cholecystitis. Right upper quadrant pain with radiation to the back for the past 12 hours associated with nausea vomiting. She has been having increasing frequent episodes of biliary colic was recently in the emergency room 4 days ago for an episode which at that time did not demonstrate acute cholecystitis. Today white blood cell count 12 ultrasound shows stones wall thickening and pericholecystic fluid. In the emergency room she received IV fluids and Zosyn. Past medical history is significant for gastroesophageal reflux disease and rheumatoid arthritis for which she takes methotrexate. No history of coronary artery disease, valvular disease, arrhythmia, peripheral vascular disease, diabetes, stroke, pulmonary or renal insufficiency. They are a nonsmoker and not on anticoagulation. No prior abdominal surgery. Patient History Medical History Arthritis (Acute) Fibromyalgia (Acute) GERD (gastroesophageal reflux disease) (Acute) Surgical History No pertinent past surgical history (Acute) Family & Social History Safety & Behavioral: Feels Safe in Current Yes Environment Tobacco & Substance use: Smoking Status Never smoker alcohol intake frequency holiday/special occasion Substance Use Type does not use Meds Home Medications and Allergies Home Medications Medication Instructions Recorded Confirmed Type hydrocodone-acetaminophen [[place]] 1 tab PO Q4-6H PRN #14 tab 08/30/18 Rx hydrocodone-acetaminophen 1 tab PO Q4-6H PRN #10 tab 01/09/19 Rx ondansetron 4 mg PO TID-QID PRN #10 tab 01/09/19 Rx Allergies Allergy/AdvReac Type Severity Reaction Status Date / Time No Known Drug Allergies Allergy Verified 08/29/18 19:52 Review of Systems Review of Systems Narrative: A complete review of systems is negative except as noted in the HPI Exam Vital Signs (past 8 hours): - 01/12/19 11:00 01/12/19 11:57 Temperature 98.8 F Pulse Rate 91 H 81 Respiratory Rate 18 Blood Pressure 171/89 H Blood Pressure [Left Arm] 149/83 H Pulse Oximetry 98 99 Oxygen Delivery Method Room Air Narrative Exam Narrative: General-no acute distress, well nourished HEENT-moist mucous membranes, no scleral icterus Neck-supple, no lymphadenopathy Chest- non labored respirations, clear to auscultation bilaterally Cardiac-regular rate no peripheral edema Abdomen-positive Todd's exam. Extremities-warm, well perfused Neurological-alert and oriented, no focal deficits Objective Labs Result Diagrams: 01/12/19 11:30 01/12/19 11:30 Labs: Laboratory Results - last 24 hr 01/12/19 01/12/19 01/12/19 11:30 11:30 13:14 WBC 12.0 H RBC 4.63 Hgb 13.9 Hct 41.6 MCV 89.8 MCH 30.0 MCHC 33.3 RDW 15.0 H Plt Count 253 Neut % (Auto) 88.7 H Lymph % (Auto) 4.8 L [place] % (Auto) 6.0 Eos % (Auto) 0.3 L Baso % (Auto) 0.2 Neut # (Auto) 79596 H Lymph # (Auto) 600 L [place] # (Auto) 700 Eos # (Auto) 0 Baso # (Auto) 0 Sodium 136 L Potassium 3.8 Chloride 100 Carbon Dioxide 24 BUN 12 Creatinine 0.50 L Estimated GFR > 60.0 BUN/Creatinine Ratio 24.0 H Glucose 99 Calcium 9.9 Total Bilirubin 1.2 AST 28 ALT 24 Alkaline Phosphatase 96 Total Protein 8.0 Albumin 4.5 Globulin 3.5 Albumin/Globulin Ratio 1.3 Amylase 55 Lipase 39 D Urine RBC None seen Urine WBC 0-1/hpf Ur Squamous Epith Cells 0-1 /hpf Urine Bacteria Occasional (0-1) Ur Culture Indicated? Cult not indicated Assessment & Plan Assessment and plan (1) Acute cholecystitis: Current visit: Yes Status: Acute Assessment & Plan narrative: 63-year-old female with history of biliary colic presents with acute cholecystitis x 12 hours. Positive Todd's exam, white blood cell count 12 total bilirubin 1.2 LFTs normal. Ultrasound today demonstrates gallbladder wall thickening pericholecystic fluid stones and normal duct. Laparoscopic cholecystectomy is indicated for acute cholecystitis. I discussed described the operation to her and to her pictures and discussed the risks of the operation including bleeding infection damage to surrounding structures bile leak need for further procedure possible conversion to open. Her questions have been answered and she is in agreement with this plan. Laparoscopic cholecystectomy now NPO IV fluids Zosyn Observation
[2019-01-12] MEDS: APREPITANT 40 MG CAPSULE PO (14:15)
--- NOTE | 2019-01-12 15:05 | SUR.OPER ---
Supine on padded OR bed, head on pillow, safety belt at thigh, left arm padded and tucked at side. Right arm secured on padded arm oard <90 degrees abduction. Legs uncrossed. Padded footboard in place. Tape over blanket to secure lower legs.
[2019-01-12] MEDS: BUPIVACAINE 0.25% (PF) VIAL 30 ML INJ (15:29)
--- NOTE | 2019-01-12 15:35 | SUR.OPER ---
glasses in labeled bag to pacu with patient
[2019-01-12] MEDS: LACTATED RINGERS 1,000 ML 42 ML IV (15:46)
--- NOTE | 2019-01-12 16:08 | PM.OP.1 ---
Operative Date/Time/Diagnoses Date of procedure: 01/12/19 Time of procedure: 16:08 Pre-op diagnosis: acute cholecystitis Post-op diagnosis: same Procedure & Clinicians Procedure: Laparoscopic cholecystectomy Same procedure as scheduled: Yes Indications: 63-year-old female with a history of biliary colic presents with acute cholecystitis for 12 hours. She had positive Todd's sign white count 12 and normal bilirubin and ultrasound demonstrating wall thickening pericholecystic fluid and stones. Surgeon: Anibal Patel Anesthesia Type: General Operative Notes Findings: Chronic cholecystitis thick gallbladder wall with fat stranding Specimen(s): other (Gallbladder) Estimated Blood Loss (mL): 50 Procedure in detail: The patient was brought to the operating room placed supine on the table. Bilateral lower extremity compression devices were applied. General anesthesia was induced and they were intubated with an endotracheal tube. They received 3.75 g of Zosyn prior to skin incision. A time-out was performed to ensure the correct patient procedure necessary equipment within the operating room. They were then prepped and draped in the usual sterile fashion. Infraumbilical incision was made the umbilical stalk was grasped and elevated and the fascia was sharply incised. The abdomen was entered atraumatically. A 10 mm trocar was then placed into the abdomen. Pneumoperitoneum was established. The laparoscopic camera was inserted into the abdomen inspection was made that demonstrated no evidence of injury upon entry. We then placed our working ports the 1st 5 mm port high in the epigastrium and then 2 in the right upper quadrant. The gallbladder was chronically inflamed and very thick wall to it the omentum was fused to the gallbladder consistent with chronic cholecystitis. In addition it was acutely distended and thick wall made it difficult to grasp and therefore a 14 gauge spinal needle was used to aspirate the bile for decompression. The gallbladder was grasped and retracted over the liver and grasped laterally by the fundus. The triangle of Calot was exposed. The triangle of calot was then skeletonized using hook electrocautery and demonstrated the cystic duct clearly entering the gallbladder the cystic artery and the liver and in the background. With the critical view of safety established the cystic duct was clipped twice proximally and once distally and then sharply divided and the cystic artery was taken in the same fashion. Next the gallbladder was removed from the liver bed using electro cautery. The liver bed was then inspected for hemostasis and this was achieved. The abdomen was irrigated with 3 L sterile saline and inspection was made that showed the clips in good position. The specimen was removed using Endo-Catch. The abdomen was desufflated. The the fascia of the umbilicus was closed with 0 Vicryl in a dhezle-ni-brppb fashion. Skin incisions were irrigated and closed with 4-0 Monocryl. The wounds were sealed with Dermabond. Patient emerged from general anesthesia was extubated and transferred to the postoperative care unit missed stable condition. The sponge and instrument count at the end of the operation was correct. Complications: none Post-operative Condition: stable Disposition: observation
[2019-01-12] MEDS: fentaNYL 100 MCG/2 ML INJ IV (16:15)
--- NOTE | 2019-01-12 16:41 | SUR.PHASEI ---
PACU Phase 1 note: Patient arrived to PACU at 1554. VSS, O2 Sats WNL on RA. Abdomen soft and tender to touch. Incisions with steri strips CDI. No drainage noted. Medicated with IV Fentanyl with small relief. Patient tolerating pain level 6/10. Resting quietly. Telephone report called to Carlyle OVIEDO. Stable for transport patient to IP room 205 via inpatient bed belonging bag and glasses with patient.
[2019-01-12] MEDS: METOCLOPRAMIDE 10 MG/2 ML INJ IV (16:53)
[2019-01-12] MEDS: SODIUM CHLORIDE 0.9% 1,000 ML 100 ML IV (17:39)
[2019-01-12] MEDS: OXYCODONE/ACETAMINOPHEN 5/325 TABLET 1 TAB PO ×2 (18:42→22:42)
[2019-01-12] MEDS: ACETAMINOPHEN 325 MG TABLET 650 MG PO ×2 (18:43→22:42)
[2019-01-13] VITALS (7 sets, daily range): BP systolic 137–151; BP diastolic 79–89; PULSE 77–87; RESP 15–18; TEMP 36.4–36.5; O2SAT 96–97
[2019-01-13] MEDS: OXYCODONE/ACETAMINOPHEN 5/325 TABLET 1 TAB PO ×2 (03:29→11:48)
[2019-01-13] MEDS: TRAMADOL 50 MG TABLET PO (07:43)
[2019-01-13] MEDS: ACETAMINOPHEN 325 MG TABLET 650 MG PO ×2 (07:44→11:49)
[2019-01-13] MEDS: ONDANSETRON 4 MG/2 ML INJ IV (08:51)
--- NOTE | 2019-01-13 09:02 | CM.DANOTE ---
DCP: Case received, EMR reviewed and met with patient. Introduced self and role. Was able to meet with patient in her room, sister was present. Obtained baseline history and activity information from patient, as well as sister. DCP assessment completed with information currently available. Patient is a 63 year old female who admitted yesterday afternoon to the care of the surgical team. PCP: Kizzy Vazquez at [facility]. Payer: confirmed: [facility]. Patient came to the hospital via family vehicle secondary to increased abdominal pain. Patient was diagnosed with Acute Cholecystitis. Patient had laparoscopic cholecystectomy yesterday. Met with patient in her room, her sister was at bedside. She is to be discharged home today. Patient has right arm splint secondary to a fall she sustained in August. She had recently had cast removed. Patient anxious about going home today. She resides with her mother, Katerine, but stated, her mom is high functioning. She has her niece come over, who works in home health, to help with showers, for since patient had broken her arm, she needed some assistance. She also has her sister, they reside in [facility], that also help with showers. P: Patient is to be discharged home today. She will have supportive family. Jaclyn Kan RN/G[employer]
--- NOTE | 2019-01-13 11:08 | PM.DS.1 ---
History of Present Illness History of Present Illness Chief complaint: Not able to keep anything down Narrative: 63-year-old female with history of biliary colic presents with acute cholecystitis. Right upper quadrant pain with radiation to the back for the past 12 hours associated with nausea vomiting. She has been having increasing frequent episodes of biliary colic was recently in the emergency room 4 days ago for an episode which at that time did not demonstrate acute cholecystitis. Today white blood cell count 12 ultrasound shows stones wall thickening and pericholecystic fluid. In the emergency room she received IV fluids and Zosyn. Past medical history is significant for gastroesophageal reflux disease and rheumatoid arthritis for which she takes methotrexate. No history of coronary artery disease, valvular disease, arrhythmia, peripheral vascular disease, diabetes, stroke, pulmonary or renal insufficiency. They are a nonsmoker and not on anticoagulation. No prior abdominal surgery. Discharge Providers Provider Date of admission: 01/12/19 13:37 Discharge Date: 01/13/19 Primary care physician: Mirta Meredith MD Discharge provider: Anibal Patel MD Summary Hospital Course Discharge Diagnosis: Acute cholecystitis Hospital Course: She underwent a laparoscopic cholecystectomy 01/12/2019 which demonstrated acute on chronic cholecystitis. Postoperatively the patient did well and is recovering appropriately. She is tolerating a regular diet without nausea vomiting or pains well controlled, ambulatory and urinating spontaneously. Status at Discharge Cognitive/behavioral status at discharge: oriented Functional status at discharge: independent ambulation Overall status at discharge: patient is back to baseline Exam Vital Signs (past 8 hours): - 01/13/19 03:45 01/13/19 04:47 01/13/19 07:42 Temperature 97.6 F Pulse Rate 80 Respiratory Rate 16 Blood Pressure 137/83 Pulse Oximetry 97 96 97 01/13/19 07:47 Temperature 97.5 F L Pulse Rate 77 Respiratory Rate 18 Blood Pressure 148/79 H Pulse Oximetry 97 Oxygen Delivery Method Room Air Oxygen Flow Rate 0 Narrative Exam Narrative: General adult female alert oriented no acute distress Chest nonlabored respiration Abdomen soft appropriately tender to palpation incisions clean dry intact Objective Labs Result Diagrams: 01/12/19 11:30 01/12/19 11:30 Labs: Laboratory Results - last 24 hr 01/12/19 01/12/19 01/12/19 11:30 11:30 13:14 WBC 12.0 H RBC 4.63 Hgb 13.9 Hct 41.6 MCV 89.8 MCH 30.0 MCHC 33.3 RDW 15.0 H Plt Count 253 Neut % (Auto) 88.7 H Lymph % (Auto) 4.8 L [place] % (Auto) 6.0 Eos % (Auto) 0.3 L Baso % (Auto) 0.2 Neut # (Auto) 88040 H Lymph # (Auto) 600 L [place] # (Auto) 700 Eos # (Auto) 0 Baso # (Auto) 0 Sodium 136 L Potassium 3.8 Chloride 100 Carbon Dioxide 24 BUN 12 Creatinine 0.50 L Estimated GFR > 60.0 BUN/Creatinine Ratio 24.0 H Glucose 99 Calcium 9.9 Total Bilirubin 1.2 AST 28 ALT 24 Alkaline Phosphatase 96 Total Protein 8.0 Albumin 4.5 Globulin 3.5 Albumin/Globulin Ratio 1.3 Amylase 55 Lipase 39 D Urine RBC None seen Urine WBC 0-1/hpf Ur Squamous Epith Cells 0-1 /hpf Urine Bacteria Occasional (0-1) Ur Culture Indicated? Cult not indicated Discharge Plan Discharge Plan Patient Disposition: Home Discharge orders & Medications Prescriptions: New tramadol [Ultram] 50 mg tablet 50 mg PO Q8H PRN (Reason: pain) Qty: 20 RF: 0 Continued hydrocodone-acetaminophen [[place]] 5-325 mg tablet 1 tab PO Q4-6H PRN (Reason: pain) Qty: 14 RF: 0 hydrocodone-acetaminophen 5-325 mg tablet 1 tab PO Q4-6H PRN (Reason: pain) Qty: 10 RF: 0 ondansetron 4 mg tablet,disintegrating 4 mg PO TID-QID PRN (Reason: nausea and vomiting) Qty: 10 RF: 0 Follow up/Referrals: Mirta Meredith MD [Primary Care Provider] - Anibal Patel MD [Physician] - Diet/Activity/Treatments Diet: Low-fat Activity: No lifting >20 lbs x 4 weeks. Walking only for exercise for 4 weeks[address] while taking narcotics. Skin/Wound/Dressing Care Report to your healthcare provider any signs of infection, such as:: chills, fever, increased pain, unusual drainage and unusual redness Visit Report/Discharge Packet Instructions: DI for Cholecystectomy Visit Report Forms: Patient Portal/API, Stroke Signs & Symptoms Discharge Data Primary Care Provider: Mirta Meredith Attending Provider: Anibal Patel Admit Date/Time: 01/12/19 13:37
--- NOTE | 2019-01-13 14:40 | PC.NURSE ---
Discharge Pt states she takes tramadol at baseline. Requests something additional for pain on top of home dose. Discussed with MD and this was agreed. Pt left with oxy Rx. States it bothers her stomach, explained she was taking percocet in hospital and to try taking with food. Pt agrees. D/c instructions provided to pt and her mother. aware to make f/u apt with MD in 2 weeks. Pt states she took all belongings with her. Rx for oxy given to pt at d/c. pt left in w/c with INVENTORY ANALYST escort to car with mother.
== END 2019-01-13 14:25 | disposition home or self-care (01) ==
LOC: ED 13:21 → AC 13:38
PROVIDERS: Admitting Provider Surgery; Emergency Provider Nurse Practitioner Family; PCP Student in an Organized Health Care Education/Training Program; Visit Provider Surgery
PROC: 0FT44ZZ Resection of Gallbladder, Percutaneous Endoscopic Approach (ICD-10-PCS; CPT 47562; principal; 2019-01-12 15:00)
DX: K80.00 Calculus of gallbladder with acute cholecystitis without obstruction (principal); R10.11 Right upper quadrant pain; M79.7 Fibromyalgia
CPT/HCPCS: 47562; 36415; 74022; 76705; 80053; 81003; 81015; 82150; 83690; 85025; 94762; 96361; 96365; 96375; 96376; 99220; 99282; 99284; G0378; J1100; J2270; J2405; J2543; J2704; J2765; J3010; J8501

== ENCOUNTER → 2020-04-28 15:36 | Outpatient (CLI) | payer MEDICARE, SELFPAY ==
[2019-01-28 14:16] VITALS: BMI 31.8
[2020-04-28] MEDS: COVID-19 VACC #1, MRNA(MOD) 100 MCG/0.5 ML VIAL IM (15:46)
== END ==
PROVIDERS: PCP Physician Assistant; Visit Provider Internal Medicine
DX: Z23 Encounter for immunization (principal)
CPT/HCPCS: 0011A; 91301

== ENCOUNTER → 2020-05-26 15:16 | Outpatient (CLI) | payer MEDICARE, SELFPAY ==
[2019-01-28 14:16] VITALS: BMI 31.8
[2020-05-26] MEDS: COVID-19 VACC #2, MRNA(MOD) 100 MCG/0.5 ML VIAL IM (15:27)
== END ==
PROVIDERS: PCP Physician Assistant; Visit Provider Internal Medicine
DX: Z23 Encounter for immunization (principal)
CPT/HCPCS: 0012A; 91301